=== PATIENT | male | born 1990 | race Caucasian/White ===

== ENCOUNTER 2017-12-27 20:55 | Emergency (ER) | payer OTHER ==
[2017-12-27] MEDS ORDERED: KETOROLAC 30 MG/ML 1 ML VIAL IVP STA (21:22)
[2017-12-27] MEDS ORDERED: SODIUM CHLORIDE 0.9% 1,000 ML IV ONE (21:22)
[2017-12-27] MEDS ORDERED: MORPHINE SULFATE 2 MG/ML SYRINGE IVP STA (21:22)
[2017-12-27] MEDS ORDERED: ONDANSETRON 4 MG/2 ML VIAL IVP STA (21:22)
--- NOTE | 2017-12-27 21:31 | ED ---
Male Urogenital HPI - General Chief complaint: Urogenital Stated complaint: kidney stones Time Seen by Provider: 12/27/17 21:16 Source: patient Mode of arrival: ambulatory Limitations: no limitations - History of Present Illness Initial comments: 27 year-old male patient presents the emergency department today for evaluation of increased left flank pain. Patient states that he started having pain on Tuesday. Patient states that he was seen and evaluated at [facility] and was diagnosed with a 2 mm stone in the left ureter with some mild hydronephrosis. Patient did follow up with Dr. Rose yesterday and they were managing this medically due to the size of the stone. Patient states that this evening his pain worsen significantly. Patient states the pain is making him nauseated but he has not vomited. Patient states that he is somewhat constipated and hasn't had a bowel movement since Tuesday. States he has been taking Mulberry, ibuprofen, and Flomax. States that these medications are not helping his pain this evening. States he is able to urinate does have some evidence of hematuria. Denies any fevers or chills. Patient denies any recent rash, shortness breath, chest pain, back pain, numbness, tingling, dizziness, weakness, headache, visual changes, or any other complaints. - Related Data Previous Rx's Medication Instructions Recorded Docusate [Colace] 100 mg PO DAILY #15 capsule 12/27/17 Allergies Allergy/AdvReac Type Severity Reaction Status Date / Time amoxicillin Allergy Rash/Hives Verified 12/27/17 21:40 Sulfa (Sulfonamide Allergy Rash/Hives Verified 12/27/17 21:40 Antibiotics) Review of Systems ROS Statement: Those systems with pertinent positive or pertinent negative responses have been documented in the HPI. ROS Other: All systems not noted in ROS Statement are negative. Past Medical History Past Medical History: No Reported History History of Any Multi-Drug Resistant Organisms: None Reported Past Surgical History: No Surgical Hx Reported Past Psychological History: ADD/ADHD Smoking Status: Never smoker Past Alcohol Use History: Occasional Past Drug Use History: None Reported General Exam Limitations: no limitations General appearance: alert, in no apparent distress, other (Physical well- developed, well-nourished adult male patient in no acute distress. Vital signs upon presentation are temperature 98.7F, pulse 83, respirations 18, blood pressure 143/88, pulse ox 100% on room air.) Eye exam: Present: normal appearance, PERRL, EOMI. Absent: scleral icterus, conjunctival injection, periorbital swelling ENT exam: Present: normal exam, normal oropharynx, mucous membranes moist Respiratory exam: Present: normal lung sounds bilaterally Cardiovascular Exam: Present: regular rate, normal rhythm, normal heart sounds. Absent: systolic murmur, diastolic murmur, rubs, gallop, clicks GI/Abdominal exam: Present: soft, normal bowel sounds. Absent: distended, tenderness, guarding, rebound, rigid Back exam: Present: normal inspection, CVA tenderness (L). Absent: CVA tenderness (R) Neurological exam: Present: alert, oriented X3, CN II-XII intact Psychiatric exam: Present: normal affect, normal mood Skin exam: Present: warm, dry, intact, normal color. Absent: rash Course Vital Signs 12/27/17 21:00 Temperature 98.7 F Pulse Rate 83 Respiratory 18 Rate Blood Pressure 143/88 O2 Sat by Pulse 100 Oximetry Medical Decision Making - Medical Decision Making 27 year-old male patient presented to the emergency department today for evaluation of increased left flank pain. Patient reports he was diagnosed with kidney stone on Tuesday via CAT scan. Did review CAT scan results it did show a 2 mm kidney stone in the ureter with mild hydronephrosis. Physical examination does reveal some mild left flank tenderness. Labs reviewed and showed an elevated creatinine at 1.6, BUN was normal. Urine showed trace ketones with no evidence of blood at this time. Patient is feeling much better after receiving medications here in the department. He did receive 1 L of normal saline. He does have Mulberry and Motrin at home for pain control. He is instructed to follow-up with the urologist for reevaluation as soon as possible. He'll be discharged home. He is instructed to return here immediately for any new, worsening, or concerning symptoms. Return parameters discussed in detail. He verbalizes understanding and agrees with this plan. - Lab Data Result diagrams: 12/27/17 21:46 12/27/17 21:46 Lab Results 12/27/17 12/27/17 12/27/17 Range/Units 21:46 21:46 21:58 WBC 9.1 (3.8-10.6) k/uL RBC 4.50 (4.30-5.90) m/uL Hgb 13.6 (13.0-17.5) gm/dL Hct 39.5 (39.0-53.0) % MCV 87.9 (80.0-100.0) fL MCH 30.2 (25.0-35.0) pg MCHC 34.3 (31.0-37.0) g/dL RDW 12.6 (11.5-15.5) % Plt Count 225 (150-450) k/uL Neutrophils % 81 % Lymphocytes % 11 % Monocytes % 6 % Eosinophils % 1 % Basophils % 0 % Neutrophils # 7.4 (1.3-7.7) k/uL Lymphocytes # 1.0 (1.0-4.8) k/uL Monocytes # 0.6 (0-1.0) k/uL Eosinophils # 0.1 (0-0.7) k/uL Basophils # 0.0 (0-0.2) k/uL Sodium 139 (137-145) mmol/L Potassium 4.1 (3.5-5.1) mmol/L Chloride 99 (98-107) mmol/L Carbon Dioxide 27 (22-30) mmol/L Anion Gap 13 mmol/L BUN 11 (9-20) mg/dL Creatinine 1.60 H (0.66-1.25) mg/dL Est GFR (CKD-EPI)AfAm 68 (>60 ml/min/1.73 sqM) Est GFR (CKD-EPI)NonAf 59 (>60 ml/min/1.73 sqM) Glucose 105 H (74-99) mg/dL Calcium 9.4 (8.4-10.2) mg/dL Total Bilirubin 1.0 (0.2-1.3) mg/dL AST 28 (17-59) U/L ALT 31 (21-72) U/L Alkaline Phosphatase 61 (38-126) U/L Total Protein 6.6 (6.3-8.2) g/dL Albumin 4.3 (3.5-5.0) g/dL Amylase 46 (30-110) U/L Lipase 48 (23-300) U/L Urine Color Light Yellow Urine Appearance Clear (Clear) Urine pH 7.0 (5.0-8.0) Ur Specific [place] 1.003 (1.001-1.035) Urine Protein Negative (Negative) Urine Glucose (UA) Negative (Negative) Urine Ketones 1+ H (Negative) Urine Blood Negative (Negative) Urine Nitrite Negative (Negative) Urine Bilirubin Negative (Negative) Urine Urobilinogen <2.0 (<2.0) mg/dL Ur Leukocyte Esterase Negative (Negative) Disposition Clinical Impression: Kidney stone on left side Disposition: HOME SELF-CARE Condition: Good Instructions: Kidney Stones (ED), How to Strain Your Urine (ED) Additional Instructions: Increase fluids. Take medications as directed. Follow-up with urology for recheck as soon as possible. Return here immediately for any new, worsening, or concerning symptoms. Prescriptions: Docusate [Colace] 100 mg PO DAILY #15 capsule Is patient prescribed a controlled substance at d/c from ED?: No Referrals: Khris Herman DO [Primary Care Provider] - 1-2 days Jakub Rose MD [STAFF PHYSICIAN] - 1-2 days Time of Disposition: 22:37
[2017-12-27 22:05] LABS: Albumin 4.3 g/dL (3.5-5.0); Calcium 9.4 mg/dL (8.4-10.2); Potassium 4.1 mmol/L (3.5-5.1); Total Protein 6.6 g/dL (6.3-8.2)
[2017-12-27 22:11] LABS: Appearance,Urine Clear (Clear); Bilirubin,Urine Negative (Negative); Blood,Urine Negative (Negative); Color,Urine Light Yellow; Glucose,Urine (UA) Negative (Negative); Ketones,Urine 1+ (Negative); Leukocyte Esterase,Urine Negative (Negative); Nitrite,Urine Negative (Negative); Protein,Urine Negative (Negative); Specific Gravity,Urine 1.003 (1.001-1.035); Urobilinogen,Urine <2.0 mg/dL (<2.0)
[2017-12-27 22:29] LABS: Basophils % (A) 0 %; Eosinophils # (A) 0.1 k/uL (0-0.7); Eosinophils % (A) 1 %; HCT 39.5 % (39.0-53.0); HGB 13.6 gm/dL (13.0-17.5); Lymphocytes % (A) 11 %; MCH 30.2 pg (25.0-35.0); MCHC 34.3 g/dL (31.0-37.0); MCV 87.9 fL (80.0-100.0); Mean Platelet Volume 6.9; Monocytes # (A) 0.6 k/uL (0-1.0); Monocytes % (A) 6 %; Neutrophils # (A) 7.4 k/uL (1.3-7.7); Neutrophils % (A) 81 %; Platelet Count 225 k/uL (150-450); RDW 12.6 % (11.5-15.5); WBC 9.1 k/uL (3.8-10.6)
[2017-12-27] MEDS ORDERED: DOCUSATE 100 MG CAP PO STA (22:36)
[2017-12-27 22:56] VITALS: BP 132/66; PULSE 82; RESP 16; TEMP 97.5
--- NOTE | 2017-12-28 07:43 | P.GSHP ---
History of Present Illness H&P Date: 12/28/17 The patient is a 27-year-old gentleman known to me for kidney stone. He was seen yesterday in the office. He has a small left distal ureteral stone that he has had for several days. He is now been in the emergency room 3 times for this pain including last night. He initially was in [facility] emergency room where the stone was identified on CAT scan. Because of the persistent stone and pain he comes to the hospital for left ureteroscopic stone manipulation. He also has a tiny stone in the right kidney. He has no previous history of stones. He has no other major medical illnesses. He is ALLERGIC to sulfa and penicillin. - Constitutional Constitutional: Denies chills, Denies fever - EENT Eyes: denies blurred vision, denies pain Ears, nose, mouth and throat: Denies headache, Denies sore throat - Cardiovascular Cardiovascular: Denies chest pain, Denies shortness of breath - Respiratory Respiratory: Denies cough, Denies 7 - Gastrointestinal Gastrointestinal: Denies abdominal pain, Denies diarrhea, Denies nausea, Denies vomiting - Genitourinary (Female) Genitourinary: Denies dysuria, Denies hematuria - Genitourinary (Male) Genitourinary: Denies dysuria, Denies hematuria - Musculoskeletal Musculoskeletal: Denies myalgias - Integumentary Integumentary: Denies pruritus, Denies rash - Neurological Neurological: Denies numbness, Denies weakness - Psychiatric Psychiatric: Denies anxiety, Denies depression - Endocrine Endocrine: Denies fatigue, Denies weight change Past Medical History Past Medical History: No Reported History History of Any Multi-Drug Resistant Organisms: None Reported Past Surgical History: No Surgical Hx Reported Past Psychological History: ADD/ADHD Smoking Status: Never smoker Past Alcohol Use History: Occasional Past Drug Use History: None Reported Medications and Allergies Home Medications Medication Instructions Recorded Confirmed Type Docusate [Colace] 100 mg PO DAILY #15 capsule 12/27/17 Rx Allergies Allergy/AdvReac Type Severity Reaction Status Date / Time amoxicillin Allergy Rash/Hives Verified 12/27/17 21:40 Sulfa (Sulfonamide Allergy Rash/Hives Verified 12/27/17 21:40 Antibiotics) Surgical - Exam Vital Signs Temp Pulse Resp BP Pulse Ox 98.7 F 83 18 143/88 100 12/27/17 21:00 12/27/17 21:00 12/27/17 21:00 12/27/17 21:00 12/27/17 21:00 - General well developed, well nourished - Eyes PERRL - ENT no hearing loss - Neck trachea midline - Respiratory normal expansion, normal respiratory effort - Cardiovascular Rhythm: regular - Abdomen Abdomen: soft, non tender - Genitourinary normal penis with no external lesions, testicles present - Neurologic normal coordination, normal sensation - Musculoskeletal normal gait, normal posture - Psychiatric oriented to time, oriented to person, oriented to place, speech is normal, memory intact Results - Labs 12/27/17 21:46 12/27/17 21:46 Abnormal Lab Results - Last 24 Hours (Table) 12/27/17 12/27/17 Range/Units 21:46 21:58 Creatinine 1.60 H (0.66-1.25) mg/dL Glucose 105 H (74-99) mg/dL Urine Ketones 1+ H (Negative) Diabetes panel 12/27/17 Range/Units 21:46 Sodium 139 (137-145) mmol/L Potassium 4.1 (3.5-5.1) mmol/L Chloride 99 (98-107) mmol/L Carbon Dioxide 27 (22-30) mmol/L BUN 11 (9-20) mg/dL Creatinine 1.60 H (0.66-1.25) mg/dL Glucose 105 H (74-99) mg/dL Calcium 9.4 (8.4-10.2) mg/dL AST 28 (17-59) U/L ALT 31 (21-72) U/L Alkaline Phosphatase 61 (38-126) U/L Total Protein 6.6 (6.3-8.2) g/dL Albumin 4.3 (3.5-5.0) g/dL Calcium panel 12/27/17 Range/Units 21:46 Calcium 9.4 (8.4-10.2) mg/dL Albumin 4.3 (3.5-5.0) g/dL Pituitary panel 12/27/17 Range/Units 21:46 Sodium 139 (137-145) mmol/L Potassium 4.1 (3.5-5.1) mmol/L Chloride 99 (98-107) mmol/L Carbon Dioxide 27 (22-30) mmol/L BUN 11 (9-20) mg/dL Creatinine 1.60 H (0.66-1.25) mg/dL Glucose 105 H (74-99) mg/dL Calcium 9.4 (8.4-10.2) mg/dL Adrenal panel 12/27/17 Range/Units 21:46 Sodium 139 (137-145) mmol/L Potassium 4.1 (3.5-5.1) mmol/L Chloride 99 (98-107) mmol/L Carbon Dioxide 27 (22-30) mmol/L BUN 11 (9-20) mg/dL Creatinine 1.60 H (0.66-1.25) mg/dL Glucose 105 H (74-99) mg/dL Calcium 9.4 (8.4-10.2) mg/dL Total Bilirubin 1.0 (0.2-1.3) mg/dL AST 28 (17-59) U/L ALT 31 (21-72) U/L Alkaline Phosphatase 61 (38-126) U/L Total Protein 6.6 (6.3-8.2) g/dL Albumin 4.3 (3.5-5.0) g/dL - Imaging CT scan - abdomen: report reviewed, image reviewed CT scan - pelvis: report reviewed, image reviewed Assessment and Plan Assessment: Impression: Left ureteral calculus with persistent ureteral colic. Recommendations: Left ureteroscopy with laser lithotripsy to remove offending stone
== END 2017-12-27 22:59 | disposition home or self-care (01) ==
LOC: EC 20:55
DX: N13.2 Hydronephrosis with renal and ureteral calculous obstruction (principal); K59.00 Constipation, unspecified; Z88.0 Allergy status to penicillin; Z88.2 Allergy status to sulfonamides
CPT/HCPCS: 36415; 80053; 82150; 83690; 85025; 81003; 99285; 96374; 96375 ×2; 96361; J2405; J1885; J2270

== ENCOUNTER 2017-12-28 08:39 | Day surgery (SDC) | payer SELFPAY ==
--- NOTE | 2017-12-28 09:40 | XR ---
EXAMINATION TYPE: XR KUB DATE OF EXAM: 12/28/2017 CLINICAL DATA: 27-year-old male preoperative stone removal, left lower abdominal pain, PHH COMPARISON: None FINDINGS: Diffuse gaseous distention of the colon and moderate stool in the cecum. Nonobstructive bowel gas pat tern. Bowel content largely obscures the renal shadows. Rounded calcifications are present in the left side of the pelvis. The more superior rounded calcific ation is lucent center suggesting a phlebolith. The more inferior calcifications measure up to 4 mm a nd most likely represent phleboliths. It is possible that one of these could represent a distal left ureteral or UVJ calculus. Bone island in the superior left acetabulum. IMPRESSION: 1. Calcifications in the left hemipelvis probably represent phleboliths. One of the 4 mm or smaller c alcifications could potentially represent a distal ureteral or UVJ calculus. 2. Diffuse gaseous distention of the colon with moderate stool in the cecum.
[2017-12-28] MEDS: LACTATED RINGERS 1,000 ML IV ONE ×2 (09:57→13:50)
[2017-12-28] MEDS ORDERED: LACTATED RINGERS 1,000 ML IV ONE (09:57)
[2017-12-28] MEDS ORDERED: LIDOCAINE 1% 20 ML VIAL (10MG/ML) FOR IV START INTRADERMA ONE (09:58)
[2017-12-28] MEDS ORDERED: ONDANSETRON 4 MG/2 ML VIAL IM STA (10:14)
[2017-12-28] MEDS ORDERED: SCOPOLAMINE 1.5MG/72HR PATCH TRANSDERM STA (10:15)
[2017-12-28] MEDS ORDERED: ONDANSETRON 4 MG/2 ML VIAL ONE (10:16)
[2017-12-28] MEDS ORDERED: IOPAMIDOL-370 50ML BTL IRRIGATION ONE ×3 (10:44→11:09)
[2017-12-28] MEDS ORDERED: PROPOFOL 10 MG/ML 20 ML VIAL IV ONE (10:45)
[2017-12-28] MEDS ORDERED: LIDOCAINE 1% INJ 10MG/ML (20 ML MDV) ONE (10:45)
[2017-12-28] MEDS ORDERED: fentaNYL (PF) 50 MCG/ML 2 ML AMP ONE (10:45)
[2017-12-28] MEDS ORDERED: MIDAZOLAM 2 MG/2 ML VIAL ONE (10:45)
--- NOTE | 2017-12-28 11:51 | FL ---
Fluoroscopy HISTORY: Ureteral stenosis 19 seconds fluoroscopy time supplied to the referring clinician. 2 intraoperative C-arm images docum ent the procedure. See dictated report from urology.
--- NOTE | 2017-12-28 11:54 | P.OP ---
Date of Procedure: 12/28/17 Preoperative Diagnosis: Left ureteral stone Postoperative Diagnosis: Same Procedure(s) Performed: Cystoscopy, left retrograde pyelogram, left ureteral balloon dilation, left ureteroscopy, placement of [id number] stent Anesthesia: JONNY Surgeon: Jakub Rose Estimated Blood Loss (ml): 0 Pathology: none sent Condition: stable Disposition: PACU Indications for Procedure: The patient is a 27-year-old male with a several day history of severe ureteral colic. He is been in the emergency room a few times. He has a 3-4 mm distal ureteral stone. Because of the persistent pain he comes for ureteroscopy was seen on KUB preoperatively Description of Procedure: Patient is brought to the operating suite. He is given a general endotracheal anesthesia. He's placed lithotomy position with sterile prep and drape. Cystoscopy Foroblique lens and 22-Palestinian sheath identifies a wide or caliber urethral stricture that is easily traverse with the scope. The prostates unremarkable. Upon entering the bladder there is some old blood and calcareous debris. The bladder mucosa is unremarkable. I attempted dilate the ureteral orifice with a 10-Palestinian catheter and this fails I then tried an 8-Palestinian catheter and this fails. A retrograde pyelograms performed to make sure I want to do ureteroscopy and the stone was seen in the distal ureter. I then attempted to pass the 7-Palestinian mini ureteroscope up the ureter but the ureters too tight. Through the ureteroscope and 035 wires passed up in the renal pelvis appeared is backloaded on the cystoscope. A 12-Palestinian ureteral dilating balloon is used to dilate the ureter. I passed the ureteroscope up into the ureter. A rawls of old blood is passed. I do not distinctly see the stone as the scope is passed up to the iliac vessels. The stone was at the UVJ on the retrograde. The ureteral stone passed or crumbled with the balloon dilation. Thus a 6 x 26 stent was placed over the working wire and coils in the renal pelvis and the bladder. The bladder strain the patient's awake and returned recovery in good condition. He'll be discharged home upon recovery and follow in the office in one week for stent removal.
[2017-12-28 12:09] VITALS: TEMP 97.5
[2017-12-28 13:34] VITALS: RESP 18
[2017-12-28 14:09] VITALS: BP 134/77; PULSE 92
== END 2017-12-28 14:26 | disposition home or self-care (01) ==
LOC: OR 08:39
PROVIDERS: ATTEND Urology
DX: N20.1 Calculus of ureter (principal); K63.89 Other specified diseases of intestine; F90.9 Attention-deficit hyperactivity disorder, unspecified type; Z88.0 Allergy status to penicillin; Z88.2 Allergy status to sulfonamides; Z79.899 Other long term (current) drug therapy
CPT/HCPCS: 74420; 74018; 52351; 52332; C2625; C1758 ×2; C1769; J2250; J2405; J2001; J3010; J2704; Q9967